=== PATIENT | male | born 1990 | race Caucasian/White ===

== ENCOUNTER 2020-05-10 11:50 | Emergency (ER) | payer OTHER ==
--- NOTE | 2020-05-10 12:46 | TELE ---
HPI Do you have fever,cough or shortness of breath?: Yes - General Reason For Visit: COVING TESTING History Source: Patient Exam Limitations: No Limitations - History of Present Illness 05/10/20 12:40 Patient is a 29-year-old male with no past medical history who participated in a virtual urgent care visit for routine cover testing. He states over the last few days he was having intermittent fevers which he was treating with Tylenol. He does not recall his temperatures. He denies any cough, body aches, shortness of breath, loss of taste or any other symptoms. He does state that his girlfriend is an EMT so she has had COVID contacts and he has been around her. He denies any known COVID positive contacts. He has not traveled outside of the or within [facility] within the last 14 days. He is allergic to penic illin. Review of Systems - Review of Systems Comments:: 05/10/20 12:41 - Review of Systems Able to Perform ROS?: Yes Constitutional: No: Chills, Loss of Appetite, Night Sweats, Weakness; positive: Intermittent fevers, routine cover testing HEENTM: No: Eye Pain, Vision changes, Ear Pain, Throat Pain, Throat Swelling, Mouth Pain, Difficulty Swallowing Respiratory: No: Cough, Shortness of Breath, Wheezing, Sputum Production Cardiac (ROS): No: Chest Pain, Chest Tightness, Palpitations, Irregular Heart Beat, Edema ABD/GI: No: Nausea, Vomiting, Abdominal Pain, Diarrhea : No Dysuria, No Hematuria, No Frequency, No Urgency Musculoskeletal: No: Muscle Pain, Back Pain, Joint Pain, Muscle Weakness, Neck Pain Integumentary: No: Lesions, Rash Neurological: No: Headache, Numbness, Tingling, Weakness, Speech Difficulties *Physical Exam - Physical Exam 05/10/20 12:42 - Physical Exam General Appearance: Nourished, Appropriately Dressed, No Distress HEENT: EOMI, Normal Voice, Hearing Grossly Normal Neck: No Decreased range of motion Respiratory/Chest: Normal chest excursion appreciated, No Accessory Muscle Use Gastrointestinal/Abdominal: No distention Musculoskeletal: Normal Inspection Integumentary: Normal Color, Dry. 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 Plan: -COVID swab ordered -COVID counseling given, isolation precautions reviewed -Patient to proceed to the [facility] for cover testing -He understands and agrees with this treatment plan. Discharge Diagnosis at time of Disposition: Counseled about COVID-19 virus infection, Fever - Referrals - Patient Instructions Discharge Instructions: [facility] Instructions, [facility] COVID-19 Isolation Protocol Additional Discharge Instructions: You were seen via a telehealth visit and tested for COVID today. You should follow isolation precautions as per [facility] guidelines. Thank you for participating in our telehealth medicine program. If you have any worsening symptoms such as high fever, shaking chills, profuse vomiting or any other worsening symptoms you should go to your local emergency department immediately or follow up with your primary care doctor immediately. If you become symptomatic: Take Tylenol 650 mg every 6 hours as needed for fever or pain. You may take Robitussin or other [id number] cough syrup. Follow the dosing instructions on the bottle. Warm tea, honey, and salt water gargles may help your symptoms. Please take precautions and self quarantine for 2 weeks and follow-up with your primary care doctor and the Department of Health. Return to the nearest emergency department for shortness of breath, difficulty breathing, chest pain, or if you have any changes in your symptoms. - Discharge Disposition: HOME Condition at time of Disposition: Stable
== END 2020-05-10 12:47 | disposition home or self-care (01) ==
LOC: JVIRT 11:50
DX: Z03.818 Encounter for observation for suspected exposure to other biological agents ruled out (principal)
CPT/HCPCS: Q3014-GT; U0003